=== PATIENT | male | born 1960 | race Caucasian/White ===

== ENCOUNTER 2017-01-07 19:54 | Observation (INO) | payer BC ==
[~2017-01-07] VITALS: Ht 170.2 cm; Wt 94.8 kg
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
--- NOTE | 2017-01-07 23:01 | DIAGNOSTIC IMAGING REPORT ---
PROCEDURE: CT THORAX ABD PELVIS W/O CONT INDICATION: BACK PAIN AND ABDOMINAL PAIN TECHNIQUE: Axial CT images were obtained of the thorax, abdomen, and pelvis with sagittal and coronal reformations. COMPARISON: Thoracolumbar spine x-rays 01/07/2017. FINDINGS: THORAX: Mild bibasilar atelectasis. No pneumothorax or pulmonary contusion. Normal mediastinum without hematoma. No adenopathy or effusion. Normal sized aorta. Heart size is normal. 25% T4 and 15% T5 acute compression fractures without retropulsion. Mild chronic T6 to T10 compression fractures. There is also an acute nondisplaced sternal fracture. ABDOMEN: The liver, gallbladder, pancreas, spleen, adrenal glands and kidneys are normal. Minor atherosclerosis. Nonspecific bowel gas pattern. L 4 and L5 limbus vertebrae. Mild degenerative changes. PELVIS: Normal appendix. Markedly distended bladder. Normal size prostate with dystrophic calcifications. No inflammatory changes or free fluid. Old post-traumatic changes of the left iliac wing. 1. Acute 25% T4 and 15% T5 compression fractures 2. Sternal fracture 3. Distended bladder 4. Results discussed with Dr. Woods All CT scans at this facility use dose modulation, iterative reconstruction, and/or weight-based dosing when appropriate to reduce radiation dose to as low as reasonably achievable.
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
--- NOTE | 2017-01-07 23:27 | ED ORDER SUMMARY ---
..... Patient: DEREK GUTIERREZ OrderSheet [facility] VisitID: [id number] [address] [place] [address] 56y, M Registration Date/Time: 01/07/2017 ORDER SHEET Weight: 92.9 kg (stated) Allergies: No Known Drug Allergy GENERAL ORDERS: CBC w Diff Urgent (19:55 01/07/2017 Nawaf DESIR) (Ack 19:57 Sea) (20:17 JSanders R.N.) CMP Urgent (19:55 01/07/2017 Nawaf DESIR) (Ack 19:57 Sea) (20:17 JSanders R.N.) UA-Culture if indicated Urgent (19:55 01/07/2017 Nawaf DESIR) (Ack 19:57 Sea) (20:17 JSanders R.N.) PT with INR Urgent (19:55 01/07/2017 Nawaf DESIR) (Ack 19:57 Sea) (20:17 JSanders R.N.) Ethyl Alcohol Urgent (19:55 01/07/2017 Nawaf DESIR) (Ack 19:57 Sea) (20:17 JSanders R.N.) CT Cervical Spine wo Cont Urgent (19:55 01/07/2017 Nawaf DESIR) (Ack 19:57 Sea) (20:09 [employer] ER Procurement Specialist) CT Head wo Cont Urgent (19:55 01/07/2017 Nawaf DESIR) (Ack 19:57 Sea) (20:09 [employer] ER Procurement Specialist) Thoraco-Lumbar Spine 2V Urgent (21:06 01/07/2017 Nawaf DESIR) (Ack 21:13 Sea) (21:20 RFay) CT Thoracic Spine wo Cont Urgent (21:33 01/07/2017 Nawaf DESIR) (Cancelled: Other21:39 Nawaf DESIR) (Ack 21:40 Sea) CT Thorax/Abd/Pelvis wo Cont Urgent (21:40 01/07/2017 Nawaf DESIR) (Ack 22:04 Sea) (22:08 JSanders R.N.) MEDICATION ORDERS: Tdap IM 0.5 mL (NOW) (20:24 01/07/2017 Nawaf DESIR) (20:31 JSanders R.N.) Toradol IM 60 mg (NOW) (21:04 01/07/2017 Nawaf DESIR) (Ack 21:12 JSanders R.N.) (Cancelled: IV 21:24 JSanders R.N.) IV FLUIDS: Toradol IV 30 mg (NOW) (21:24 01/07/2017 JSanders R.N. verbal order read back to Nawaf DESIR) (21:24 JSanders R.N.) Toradol IV 30 mg (NOW) (21:51 01/07/2017 JSanders R.N. verbal order read back to Nawaf DESIR) (21:51 JSanders R.N.) ORDER SHEET NOTES: [Electronically signed by Ion Woods MD (23:59 01/07/2017)] [Electronically signed by Elise Saldaña R.N. (06:06 01/08/2017)] [Electronically locked/signed by Elise Saldaña R.N. (06:06 01/08/2017)]
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
--- NOTE | 2017-01-07 23:27 | ED ORDER SUMMARY ---
..... Patient: DEREK GUTIERREZ OrderSheet Merged With [facility] VisitID: [id number] [address] [place] [address] 56y, M Registration Date/Time: 01/07/2017 ORDER SHEET Weight: 92.9 kg (stated) Allergies: No Known Drug Allergy GENERAL ORDERS: CBC w Diff Urgent (19:55 01/07/2017 Nawaf DESIR) (Ack 19:57 Sea) (20:17 JSanders R.N.) CMP Urgent (19:55 01/07/2017 Nawaf DESIR) (Ack 19:57 Sea) (20:17 JSanders R.N.) UA-Culture if indicated Urgent (19:55 01/07/2017 Nawaf DESIR) (Ack 19:57 Sea) (20:17 JSanders R.N.) PT with INR Urgent (19:55 01/07/2017 Nawaf DESIR) (Ack 19:57 Sea) (20:17 JSanders R.N.) Ethyl Alcohol Urgent (19:55 01/07/2017 Nawaf DESIR) (Ack 19:57 Sea) (20:17 JSanders R.N.) CT Cervical Spine wo Cont Urgent (19:55 01/07/2017 Nawaf DESIR) (Ack 19:57 Sea) (20:09 [facility] [employer]) CT Head wo Cont Urgent (19:55 01/07/2017 Nawaf DESIR) (Ack 19:57 Sea) (20:09 [facility] [employer]) Thoraco-Lumbar Spine 2V Urgent (21:06 01/07/2017 Nawaf DESIR) (Ack 21:13 Sea) (21:20 RFay) CT Thoracic Spine wo Cont Urgent (21:33 01/07/2017 Nawaf DESIR) (Cancelled: Other21:39 Nawaf DESIR) (Ack 21:40 Sea) CT Thorax/Abd/Pelvis wo Cont Urgent (21:40 01/07/2017 Nawaf DESIR) (Ack 22:04 Sea) (22:08 JSanders R.N.) MEDICATION ORDERS: Tdap IM 0.5 mL (NOW) (20:24 01/07/2017 Nawaf DESIR) (20:31 JSanders R.N.) Toradol IM 60 mg (NOW) (21:04 01/07/2017 Nawaf DESIR) (Ack 21:12 JSanders R.N.) (Cancelled: IV 21:24 JSanders R.N.) IV FLUIDS: Toradol IV 30 mg (NOW) (21:24 01/07/2017 JSanders R.N. verbal order read back to Nawaf DESIR) (21:24 JSanders R.N.) Toradol IV 30 mg (NOW) (21:51 01/07/2017 JSanders R.N. verbal order read back to Nawaf DESIR) (21:51 JSanders R.N.) ORDER SHEET NOTES: [Electronically signed by Ion Woods MD (23:59 01/07/2017)] [Electronically signed by Elise Saldaña R.N. (06:06 01/08/2017)] [Electronically locked/signed by Elise Saldaña R.N. (06:06 01/08/2017)]
[2017-01-08] MEDS ORDERED: EVEKEO10 MG PO (00:40)
[2017-01-08 00:57] VITALS: BP 144/94
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
[2017-01-08 05:09] VITALS: BP 137/97
--- NOTE | 2017-01-08 06:06 | ED DISCHARGE INSTRUCTIONS ---
Patient: DEREK GUTIERREZ General Instructions [facility] VisitID: [id number] [place] [address] 56y, M Registration Date/Time: 01/07/2017 Multiple abrasions to the forehead and left forearm. Contusion to the forehead. Alcohol intoxication. Fall. T4 AND T5 COMPRESSION FRACTURES STERNAL FRACTURE. INSTRUCTIONS (EVERY 2 HOUR MENTAL STATUS CHECKS. MAY SLEEP IN BETWEEN CHECKS. X 24 HOURS IF YOU WISH, [facility] CAN DO AN ALCOHOL ASSESSMENT TO SEE IF YOU WOULD BENEFIT FROM ALCOHOL CESSATION.). ADDITIONAL INFORMATION Mechanical Fall You have had a fall today. It appears that the cause is mechanical. That means that you slipped, tripped or lost your balance. If your fall had been due to fainting or a seizure, further tests would be required. Home Care: Rest today and resume your normal activities when you are feeling back to normal. If you were injured during the fall, follow the advice from your doctor regarding care of your injury. You may use acetaminophen (Tylenol) or ibuprofen (Motrin, Advil) to control pain, unless another pain medicine was prescribed. [NOTE: If you have chronic liver or kidney disease or ever had a stomach ulcer or GI bleeding, talk with your doctor before using these medicines.] Fall Prevention: Was there anything that caused your fall that can be fixed, removed, or replaced? Make your home safe by keeping walkways clear of objects you may trip over. Use non-slip pads under rugs. Do not walk in poorly lit areas. Do not stand on chairs or wobbly ladders. Use caution when reaching overhead or looking upward. This position can cause a loss of balance. Be sure your shoes fit properly, have non-slip bottoms and are in good condition. Be cautious when going up and down curbs, and walking on uneven sidewalks. If your balance is poor, consider using a cane or walker. Stay as active as you can. Balance, flexibility, strength, and endurance all come from exercise. They all play a role in preventing falls. Follow Up with your doctor or as advised by our staff. Get Prompt Medical Attention if any of the following occur: Repeated mechanical falls, or unexplained falls Dizziness, fainting or seizure Severe headache Chest pain or shortness of breath Palpitations (very rapid or very slow or irregular heartbeat) Blood in vomit, stools (black or red color) Weakness of an arm or leg or one side of the face Difficulty with speech or vision Abrasions Abrasions are skin scrapes. Their treatment depends on how large and deep the abrasion is. Home Care: If you were given a bandage, change it once a day. If your bandage sticks to the wound, soak it in warm water until it loosens. Wash the area with soap and water to remove all the cream/ointment. You may do this in a sink, under a tub faucet or shower. Rinse off the soap and pat dry with a clean towel. Reapply cream/ointment according to your doctor's instructions. This will prevent infection and help prevent the bandage from sticking. Cover the wound with a fresh non-stick bandage (Telfa). Repeat steps 1 to 4 daily, or as directed by your doctor. If the bandage becomes wet or dirty, change it as soon as possible. You may use acetaminophen (Tylenol) or ibuprofen (Motrin, Advil) to control pain, unless another pain medicine was prescribed. [ NOTE : If you have chronic liver or kidney disease or ever had a stomach ulcer or GI bleeding, talk with your doctor before using these medicines.] Do not use ibuprofen in children under six months of age. Follow Up with your physician or this facility as directed by our staff. Most skin wounds heal within ten days. However, an infection may occur despite proper treatment. Therefore, look for the early signs of infection listed below. Get Prompt Medical Attention if any of the following occur: Increasing pain in the wound Increasing redness or swelling Pus coming from the wound Fever of 100.4F (38C) or higher, or as directed by your healthcare provider Scalp Contusion [W/ Wake-Up] A scalp contusion is a bruise with swelling. Sometimes there is bleeding under the skin. The swelling should start to go down within two days. Although there is no sign of a serious injury at this time, symptoms may show up later. These could be a sign of a more serious problem (bruising or bleeding in the brain). Home Care: During the next 24 hours someone must stay with you. This person should WAKE YOU EVERY TWO HOURS to check for the signs below. If you have swelling of the face or scalp, apply an ice pack (ice cubes in a plastic bag, wrapped in a towel). Do this for 20 minutes every 1-2 hours until the swelling starts to go down. You may use acetaminophen (Tylenol) or ibuprofen (Motrin, Advil) to control pain, unless another pain medicine was prescribed. [ NOTE : If you have chronic liver or kidney disease or ever had a stomach ulcer or GI bleeding, talk with your doctor before using these medicines.] For the next 24 hours: Do not take alcohol, sedatives or medicines that make you sleepy. Do not drive or operate machinery. Avoid strenuous activities. No lifting or straining. If you have had any symptoms of a concussion today (nausea, vomiting, dizziness, confusion, headache, memory loss or if you were knocked out), do not return to sports or any activity that could result in another head injury until all symptoms are gone and you have been cleared by your doctor. A second head injury before fully recovering from the first one can lead to serious brain injury. Follow Up with your doctor if symptoms are not improving after 24 hours, or as directed. [NOTE: Any X-rays or CT scans taken will be reviewed by a radiologist. You will be notified of any new findings that may affect your care.] Get Prompt Medical Attention if any of the following occur: Repeated vomiting Severe or worsening headache or dizziness Unusual drowsiness, or unable to awaken as usual Confusion or change in behavior or speech, memory loss, blurred vision Convulsion (seizure) Increasing scalp or face swelling Redness, warmth or pus from the swollen area Fluid drainage or bleeding from the nose or ears Fever of 100.4F(38C) or higher, or as directed by your healthcare provider Alcohol Intoxication Alcohol intoxication occurs when you drink alcohol faster than your liver can remove it from your system. Alcohol intoxication affects your judgment and coordination. Very high blood alcohol levels can cause coma, very slow breathing and even . If you drink alcohol every day, this may gradually cause permanent damage to your liver, brain, heart, pancreas and other organs. Alcohol use during may cause permanent damage to the growing baby. Home Care: Do not drink any more alcohol. DO NOT DRIVE until all effects of the alcohol have worn off. Get lots of rest over the next few days. Drink plenty of water and other non-alcoholic liquids. Try to eat regular meals. If you have been drinking heavily on a daily basis, you may go through alcohol withdrawl. This is also called the shakes or DTs. The usual symptoms last 3 to 4 days and may include nervousness, shakiness, nausea, sweating or sleeplessness. During this time, it is best that you stay with family or friends who can help and support you. You can also admit yourself to a residential detox program. If your symptoms are severe, contact your doctor for medicines to help. Follow Up: If alcohol is causing a problem in your life, these and other organizations can help you: Alcoholics Anonymous offers support through a self-help fellowship. There are no dues or fees. See the Yellow Pages and call for time and place of meetings. www.aa.org Willem offers support to families of alcohol users. 347.465.1869 www.al-anon.org National [place] On Alcoholism And Drug Dependence 064-711-7326 www.ncadd.org There are also inpatient or residential alcohol detox programs. Check the Internet or phonebook Yellow Pages under Drug Abuse & Treatment Centers. Get Prompt Medical Attention if any of the following occur: there) You have been given the following additional information: Fall, Mechanical Abrasion Scalp Contusion With Wake Up Alcohol Intoxication (Electronically signed by Ion Woods MD 01/07/2017 23:59)
--- NOTE | 2017-01-08 06:07 | ED MAR SUMMARY ---
..... Medication Administration Record [facility] [address] [place] [address] Patient: DEREK GUTIERREZ Visit ID: [id number] 56y, M Weight: 92.9 kg Height/Length: 67 in BMI: 32.1 ALLERGIES: No Known Drug Allergy Given 20:31 01/07/2017 Elise Saldaña R.N. Medication Administered: TDAP [IM], Dose: 0.5 mL IM. Medication Ordered: Tdap IM 0.5 mL (NOW). Given 21:24 01/07/2017 Elise Saldaña R.N. Medication Administered: TORADOL [IVP], Dose: 30 mg IVP over 1 minute(s), Site: #1 right AC. Medication Ordered: Toradol IV 30 mg (NOW). Given 21:51 01/07/2017 Elise Saldaña RSilvestreNSilvestre Medication Administered: TORADOL [IVP], Dose: 30 mg IVP over 1 minute(s), Site: #1 right AC. Medication Ordered: Toradol IV 30 mg (NOW).
--- NOTE | 2017-01-08 06:07 | ED MED RECONCILIATION SUMMARY ---
Patient: DEREK GUTIERREZ Medication Reconciliation Report [facility] VisitID: [id number] [address] [place] [address] 56y, M Registration Date/Time: 01/07/2017 Weight: 92.9 kg Height/Length: 67 in. BMI: 32.1 ALLERGIES: No Known Drug Allergy The patient's Home Medications are listed below: THE FOLLOWING MEDICATIONS NEED TO BE RECONCILED: Amphetamine Salt Combo (10mg) Oral CPAP The source(s) of the original Home Medication information: Not obtained. The following Medications were given to the patient in the Emergency Department: TDAP [IM] IM 0.5 mL, administered: 01/07/2017 8:31:00 PM Toradol [IVP] IVP 30 mg, administered: 01/07/2017 9:24:00 PM Toradol [IVP] IVP 30 mg, administered: 01/07/2017 9:51:00 PM The following Medications were prescribed to the patient: None.
--- NOTE | 2017-01-08 06:07 | ED MAR SUMMARY ---
..... Medication Administration Record [facility] [address] [place] [address] Patient: DEREK GUTIERREZ Visit ID: [id number] 56y, M Weight: 92.9 kg Height/Length: 67 in BMI: 32.1 ALLERGIES: No Known Drug Allergy Given 20:31 01/07/2017 Elise Saldaña R.N. Medication Administered: TDAP [IM], Dose: 0.5 mL IM. Medication Ordered: Tdap IM 0.5 mL (NOW). Given 21:24 01/07/2017 Elise Saldaña R.N. Medication Administered: TORADOL [IVP], Dose: 30 mg IVP over 1 minute(s), Site: #1 right AC. Medication Ordered: Toradol IV 30 mg (NOW). Given 21:51 01/07/2017 Elise Saldaña RSilvestreNSilvestre Medication Administered: TORADOL [IVP], Dose: 30 mg IVP over 1 minute(s), Site: #1 right AC. Medication Ordered: Toradol IV 30 mg (NOW).
--- NOTE | 2017-01-08 06:07 | ED MED RECONCILIATION SUMMARY ---
Patient: DEREK GUTIERREZ Medication Reconciliation Report [facility] VisitID: [id number] [address] [place] [address] 56y, M Registration Date/Time: 01/07/2017 Weight: 92.9 kg Height/Length: 67 in. BMI: 32.1 ALLERGIES: No Known Drug Allergy The patient's Home Medications are listed below: THE FOLLOWING MEDICATIONS NEED TO BE RECONCILED: Amphetamine Salt Combo (10mg) Oral CPAP The source(s) of the original Home Medication information: Not obtained. The following Medications were given to the patient in the Emergency Department: TDAP [IM] IM 0.5 mL, administered: 01/07/2017 8:31:00 PM Toradol [IVP] IVP 30 mg, administered: 01/07/2017 9:24:00 PM Toradol [IVP] IVP 30 mg, administered: 01/07/2017 9:51:00 PM The following Medications were prescribed to the patient: None.
[2017-01-08 10:53] VITALS: BP 143/97
[2017-01-08 14:35] VITALS: BP 161/110
[2017-01-08 18:15] VITALS: BP 145/84
[2017-01-08 22:50] VITALS: BP 154/96
[2017-01-09 03:07] VITALS: BP 145/105
[2017-01-09 06:19] VITALS: BP 133/102
[2017-01-09 10:32] VITALS: BP 153/101
--- NOTE | 2017-01-09 11:45 | Progress Note ---
Subjective General Pt is sore but has not complaints, tolerating his diet and wants to go home. Physical Exam Vital Signs / I&Os Vital Signs Date Time Temp Pulse Resp B/P Pulse O2 O2 Flow FiO2 Ox Delivery Rate 01/09 1032 98.6 75 18 153/101 98 Room Air 01/09 0945 Room Air 01/09 0619 97.7 76 20 133/102 98 Nasal 1.0 Cannula 01/09 0307 98.1 63 16 145/105 98 Nasal 1.0 Cannula 01/08 2250 98.2 70 20 154/96 98 Nasal 1.0 Cannula 01/08 2008 1.0 01/08 1944 Nasal 1.0 Cannula 01/08 1815 98.2 72 18 145/84 99 Nasal 1.0 Cannula 01/08 1435 98.2 80 18 161/110 97 Nasal 1.0 Cannula I&O 01/08 0800 01/08 1600 01/09 0000 Intake Total 1257 957 2248 Output Total 425 325 275 Balance 900 -125 1865 General Appearance Alert, Oriented X3, Cooperative, No acute distress Abdomen No tenderness Assessment and Plan Problem List 1. Sternal fracture Plan inspirometry, pain meds home today 2. Thoracic compression fracture
--- NOTE | 2017-01-09 11:45 | Progress Note ---
Subjective General Pt is sore but has not complaints, tolerating his diet and wants to go home. Physical Exam Vital Signs / I&Os Vital Signs Date Time Temp Pulse Resp B/P Pulse O2 O2 Flow FiO2 Ox Delivery Rate 01/09 1032 98.6 75 18 153/101 98 Room Air 01/09 0945 Room Air 01/09 0619 97.7 76 20 133/102 98 Nasal 1.0 Cannula 01/09 0307 98.1 63 16 145/105 98 Nasal 1.0 Cannula 01/08 2250 98.2 70 20 154/96 98 Nasal 1.0 Cannula 01/08 2008 1.0 01/08 1944 Nasal 1.0 Cannula 01/08 1815 98.2 72 18 145/84 99 Nasal 1.0 Cannula 01/08 1435 98.2 80 18 161/110 97 Nasal 1.0 Cannula I&O 01/08 0800 01/08 1600 01/09 0000 Intake Total 9427 745 5446 Output Total 425 325 275 Balance 900 -125 1865 General Appearance Alert, Oriented X3, Cooperative, No acute distress Abdomen No tenderness Assessment and Plan Problem List 1. Sternal fracture Plan inspirometry, pain meds home today 2. Thoracic compression fracture
[2017-01-09] MEDS ORDERED: NORCO1 TA1 PO (11:47)
--- NOTE | 2017-01-09 11:48 | Provider's Discharge Care Plan ---
Problem, Goal, Plan Problem List 1. Sternal fracture Instructions: Follow up as needed (cough and deep breathe, ), Stop smoking 2. Thoracic compression fracture 3. Kidney insufficiency
== END 2017-01-09 12:20 | disposition home or self-care (01) ==
LOC: ED SRH 19:54 → TRANS SRH 23:45 → ACUTE2 SRH 01-08 01:47
PROVIDERS: ADMIT Surgery
PROC: 3E0234Z Introduction of Serum, Toxoid and Vaccine into Muscle, Percutaneous Approach (ICD-10-PCS; principal; 2017-01-07)
DX: S22.040A Wedge compression fracture of fourth thoracic vertebra, initial encounter for closed fracture (principal); S22.050A Wedge compression fracture of T5-T6 vertebra, initial encounter for closed fracture; S22.20XA Unspecified fracture of sternum, initial encounter for closed fracture; S00.83XA Contusion of other part of head, initial encounter; V92.09XA Drowning and submersion due to fall off unspecified watercraft, initial encounter; V94.0XXA Hitting object or bottom of body of water due to fall from watercraft, initial encounter; Y93.19 Activity, other involving water and watercraft; F10.220 Alcohol dependence with intoxication, uncomplicated; F10.239 Alcohol dependence with withdrawal, unspecified; Y90.8 Blood alcohol level of 240 mg/100 ml or more; N28.9 Disorder of kidney and ureter, unspecified; Z23 Encounter for immunization; Y92.828 Other wilderness area as the place of occurrence of the external cause; Y99.8 Other external cause status
CPT/HCPCS: 29230; 29247; 29263; 90004; 90074; 90100; 92010; 92235; 92720; 94060; 95059